=== PATIENT | female | born 1985 | race Caucasian/White ===

== ENCOUNTER 2016-09-18 21:42 | Emergency (ER) | payer OTHER ==
[~2016-09-18] VITALS: Ht 162.6 cm; Wt 61.7 kg
[2016-09-18 21:42] VITALS: BP 121/70
[~2016-09-18 21:42] MED LIST: CEPH-264 PO; HYDR-2672 PO; HYDR60TA PO; IBUP400T PO; ONDA4TAB10 SL; PANT40TA3 PO; TIZA4TAB PO; depo shot
--- NOTE | 2016-09-18 21:50 | ED.ADGEN ---
Past History Past Medical History: No Pertinent History Past Surgical History: No Surgical History Smoking: Cigarettes, Less than 1pk/day Alcohol Use: None Drug Use: None Adult General Chief Complaint Chief Complaint " .. I poked this pimple on the Rt side of my head.. and now it gotten worse the last two days.. more infected.. it needs to be drained..." HPI HPI Patient is a 31 year old female who presents with above hx and complaints pimple on right church area that she pleased and tried to drain 2 days ago. Now has developed an area about 4 x 6 cm of erythema and swelling and pain. Does not appear to involve the para orbital area on the right. Does have some adenopathy at angle of ear. Patient does not remember her last tetanus. Patient does not give a history of previous MRSA. Patient has no history immunosuppression. No history of travel. No history of specific ill contacts. Patient is normally healthy. Pt insistent she has an abscess at area of pimple she attempted to drain. Review of Systems Review of Systems Constitutional: Denies fever or chills [] Eyes: Denies change in visual acuity, redness, or eye pain [] HENT: Denies nasal congestion or sore throat [] Respiratory: Denies cough or shortness of breath [] Cardiovascular: No additional information not addressed in HPI [] GI: Denies abdominal pain, nausea, vomiting, bloody stools or diarrhea [] : Denies dysuria or hematuria [] Musculoskeletal: Denies back pain or joint pain [] Integument: Complaints are right church area cellulitis Neurologic: Denies headache, focal weakness or sensory changes [] Endocrine: Denies polyuria or polydipsia [] Family History Family History Noncontributory Current Medications Current Medications Current Medications Medications (Trade) Dose Ordered Sig/Chloe Start Time Stop Time Status Last Admin Dose Admin Ceftriaxone Sodium (Rocephin Im) 1 gm 1X ONCE 09/18/16 23:00 09/18/16 23:01 DC 09/18/16 22:59 1 GM Diphtheria/ Tetanus/Acell Pertussis (Boostrix) 0.5 ml ONCE ONCE 09/18/16 23:00 09/18/16 23:01 DC 09/18/16 23:02 0.5 ML Lidocaine HCl 20 ml STK-MED ONCE 09/18/16 22:55 09/18/16 22:56 DC Trimethoprim/ Sulfamethoxazole (Bactrim Ds) 1 tab 1X ONCE 09/18/16 23:00 09/18/16 23:01 DC 09/18/16 22:59 1 TAB Allergies Allergies Allergies Coded Allergies Type Severity Reaction Last Updated Verified No Known Drug Allergies 03/24/15 No Physical Exam Physical Exam Constitutional: Well developed, well nourished, mild distress, non-toxic appearance. [] HENT: Normocephalic, cellulitis as per history of present illness right temporal area, bilateral external ears normal, oropharynx moist, no oral exudates, nose normal. [] Eyes: PERRLA, EOMI, conjunctiva normal, no discharge. [] Neck: Normal range of motion, no tenderness, supple, no stridor. [] Cardiovascular:Heart rate regular rhythm, no murmur [] Lungs & Thorax: Bilateral breath sounds equal with scattered wheezes on auscultation [] Abdomen: Bowel sounds normal, soft, no tenderness, no masses, no pulsatile masses. [] Skin: Warm, dry, no erythema, no rash. Except noted cellulitis right temporal area. Back: No tenderness, no CVA tenderness. [] Extremities: No tenderness, no cyanosis, no clubbing, ROM intact, no edema. [] Neurologic: Alert and oriented X 3, normal motor function, normal sensory function, no focal deficits noted. [] Psychologic: Affect anxious, judgement normal, mood normal. [] EKG EKG [] Radiology/Procedures Radiology/Procedures [] Course & Med Decision Making Course & Med Decision Making Pertinent Labs and Imaging studies reviewed. (See chart for details) Procedure note: Incision and drainage- Central point of cellulitis- Area prepped with Betadine. An incision with 11 blade with minimal drainage of pus. Dressing applied. Patient apply Polysporin 4 times a day. Patient take Bactrim DS twice a day for 10 days. Patient must follow-up primary care. Patient advised to infection may need hospital admission and IV antibiotics. Patient return of any concerns. Patient take Tylenol ibuprofen pain. For marked pain she may take Vicoprofen up to 4 times a day. She is to use warm salt water compresses 4 times a day Pt. encouraged to stop smoking. [] Final Impression Final Impression 1. Cellulitis [] 2. Tobacco Use Problems: Dragon Disclaimer Dragon Disclaimer This electronic medical record was generated, in whole or in part, using a voice recognition dictation system. BRYON CABRERA MD Sep 18, 2016 21:50
--- NOTE | 2016-09-18 22:03 | ACF ---
Admission Criteria Forms CELLULITIS Clinical Indications for Admission to Inpatient Care (Place 'X' for any and all applicable criteria): Admission is indicated for ANY ONE of the following(1)(2)(3)(4)(5): [ ]I. Limb-threatening infection [ ]II. High-risk comorbid condition as indicated by ANY ONE of the following: [ ]a) Uncontrolled diabetes (eg, HbA1c greater than 10% (0.1)) [ ]b) Cirrhosis [ ]c) Neutropenia [ ]d) Asplenia [ ]e) Immunosuppression [ ]f) Symptomatic heart failure [ ]III. Failure of outpatient therapy as indicated by ALL of the following: [ ]a) Progression or no improvement after adequate trial (minimum of 48 hours, with longer period for stable lower extremity infection) [ ]b) Adequate antibiotic regimen as indicated by use of ANY ONE of the following: [ ]i) First-generation cephalosporin (e.g., cephalexin) [ ]ii) Antistaphylococcal penicillin (e.g., dicloxacillin) [ ]iii) Penicillin-allergic patient regimen (clindamycin, extended-spectrum fluoroquinolone, or doxycycline) [ ]iv) Resistant organism (eg, methicillin-resistant Staphylococcus aureus) regimen (6) [ ]c) Outpatient intravenous therapy regimen is not appropriate due to ANY ONE of the following. (7)(8)(9)(10): [ ]i) It was tried and was not successful (eg, progression of infection). [ ]ii) It is not available or cannot be arranged in a clinically appropriate time frame (e.g., the next day). [ ]iii) Clinical presentation (eg, acuity of infection, rapidity of progression, confirmed or suspected bacteremia) is judged to require ALL of the following: [ ]1) Immediate initiation of intravenous therapy ( eg, cannot wait for next day) [ ]2) Intensity of patient monitoring and observation (eg, vital sign measurement, checks for infection progression) that cannot be provided at other than inpatient level of care [ ]IV. Mental status changes [ ]V. Bacteremia [ ]. Hemodynamic instability [ ]VII. Suspected necrotizing soft tissue infection (e.g., gas in tissue)(11)( 12) [ ]VIII. Orbital infection (13)(14) [ ]IX. Associated surgical procedure (e.g., abscess drainage, debridement) not amenable to outpatient, emergency department, or observation care [ ]X. Cutaneous gangrene [ ]XI. High fever (temperature greater than 39.5 degrees C (103.1 degrees F) (oral)) not responsive to outpatient, emergency department, or observation care therapy [ ]XIII. Inpatient admission required rather than observation care (Also use Cellulitis: Observation Care as appropriate) because of ANY ONE of the following : [ ]a) Periorbital or perineal infection that is severe or worsening [ ]b) Severe pain requiring acute inpatient management [ ]c) IV fluid to replace significant ongoing (e.g., for over 24 hours) losses (greater than 3L/m2 per day) [ ]d) Compartment syndrome monitoring (17) [ ]e) Strict or protective (eg, laminar flow) isolation [ ]f) Urgent debridement or skin grafting [ ]g) Bone or joint debridement [ ]h) Immediate inpatient surgery [ ]i) Other condition, treatment or monitoring requiring inpatient admission Extended stay beyond goal length of stay may be needed for (1)(18): [ ]a) Necrotizing soft tissue infection or fasciitis [ ]b) Gram-negative infection [ ]c) Methicillin-resistant Staphylococcal aureus (MRSA) infection [ ]d) Peripheral venous insufficiency with cellulitis [ ]e) Extensive edema [ ]f) Sepsis or continued Hemodynamic instability [ ]g) Continued high fever or mental status change [ ]h) Bacteremia [ ]i) Active serious comorbid conditions ( eg, heart failure, renal insufficiency) The original [employer] content created by [employer] has been revised. The portions of the content which have been revised are identified through the use of italic text or in bold, and [facility] has neither reviewed nor approved the modified material. All other unmodified content is copyright [facility] Please see references footnoted in the original [facility] edition 2016 SMILEY W[place] Sep 18, 2016 22:03
[2016-09-18] MEDS ORDERED: HYDR-79 PO (22:46)
[2016-09-18] MEDS ORDERED: SULF1TAB24 PO (22:46)
[2016-09-18] MEDS ORDERED: LIDOCAINE 1% Multi-Dose 20 ML VIAL. ONE (22:55)
[2016-09-18] MEDS ORDERED: CEFTRIAXONE IM 1 GM VIAL. IM ONE (23:00)
[2016-09-18] MEDS ORDERED: SMZ/TMP 800/160MG TABLET. PO ONE (23:00)
[2016-09-18] MEDS ORDERED: DIPHTH,PERTUSS(ACELL),TET TOX 0.5 ML DISP.SYRIN. VAX IM ONE (23:00)
== END 2016-09-18 23:15 | disposition home or self-care (01) ==
LOC: ER 21:42
DX: L03.811 Cellulitis of head [any part, except face] (principal); F17.210 Nicotine dependence, cigarettes, uncomplicated
CPT/HCPCS: 10060; 90471; 90715; 96372; 99284; J0696

== ENCOUNTER 2020-01-21 16:03 | Emergency (ER) | payer OTHER ==
[~2020-01-21] VITALS: Ht 162.6 cm; Wt 61.0 kg
[~2020-01-21 16:03] MED LIST changes: +HYDR-1179 PO; -HYDR-2672 PO; +HYDR-2769 PO; -IBUP400T PO; +IBUP400T18 PO; +SULF1TAB24 PO; -TIZA4TAB PO; +TIZA4TAB2 PO
[2020-01-21 16:19] VITALS: BP 104/61
--- NOTE | 2020-01-21 16:42 | RAD ---
Three-view right elbow study Clinical indications: Speaker fell on right elbow. Right elbow pain. FINDINGS: No joint effusion is seen. No acute fracture or dislocation or lytic process is seen. No significant arthritic change is evident. IMPRESSION: No acute osseous abnormality. Electronically signed by: Peter Alvarado MD (01/21/2020 4:39 PM) [id number]
--- NOTE | 2020-01-21 16:47 | PHYS DOC ---
Past History Past Medical History: No Pertinent History Past Surgical History: No Surgical History Smoking: Cigarettes, Less than 1pk/day Alcohol Use: None Drug Use: None Adult General Chief Complaint Chief Complaint: UPPER EXTREMITY INJURY [facility] HPI Patient is a 34-year-old female who presents for right elbow pain. Onset was 2 days ago when she reportedly dropped a speaker from head height onto her right elbow. Patient reports generalized aches, pains, and "tingling "in right upper extremity". Patient reportedly took narcotic pain medication from her friend today that made it better, movement and "everything "makes worse. Pain described as dull, radiates from elbow to both hand and right shoulder, and during movement or palpation 10/10 in severity. Timing of symptoms has been constant since onset. Review of Systems Review of Systems Fourteen body systems of review of systems have been reviewed. See HPI for pertinent positives and negative responses, other burks all other systems are negative, non-pertinent or non-contributory Allergies Allergies Allergies Coded Allergies Type Severity Reaction Last Updated Verified No Known Drug Allergies 03/24/15 No Physical Exam Physical Exam Constitutional: Well developed, well nourished, no acute distress, non-toxic appearance. HENT: Normocephalic, atraumatic, bilateral external ears normal, oropharynx moist, no oral exudates, nose normal. Eyes: PERRLA, EOMI, conjunctiva normal, no discharge. Neck: Normal range of motion, no tenderness, supple, no stridor. Cardiovascular: Heart rate regular, sinus rhythm, no murmurs rubs or gallops Lungs & Thorax: Bilateral breath sounds clear to auscultation Abdomen: Bowel sounds normal, soft, no tenderness, no masses, no pulsatile masses. Nonsurgical abdomen, no peritoneal signs Skin: Warm, dry, no erythema, no rash. Back: No tenderness, no CVA tenderness. Extremities: No cyanosis, no clubbing, ROM intact, no edema. Shoulder, bilateral unless otherwise noted Appearance of Glenohumeral joint normal Nontender Clavicle and Humerus Sensation over deltoid in tact Neurovascular exam distally in tact per routine Compartments surrounding are soft Elbow, bilateral unless otherwise noted Distal humerus nontender Olecranon nontender Medial and Lateral epicondyles nontender, lateral epicondyles tender on right upper extremity Full Range of Motion with full strength, decreased range of motion of right upper extremity due to pain, strength 4/5 Neurovascular exam distally in tact per routine Compartments surrounding are soft Fingers: normal inspection, non tender, normal color, normal tendon function including FDS and FDP functions Hand: normal inspection, non tender, normal color, tendon function intact Wrist: normal inspection, non tender, normal color, no joint swelling Neurologic: Alert and oriented X 3, grossly normal motor & sensory function, no focal deficits noted. Psychologic: Affect normal, judgement normal, mood normal. Current Patient Data Vital Signs Vital Signs Date Time Temp Pulse Resp B/P (MAP) Pulse Ox O2 Delivery O2 Flow Rate FiO2 01/21/20 16:19 98.0 95 16 104/61 (75) 99 Room Air EKG EKG [] Radiology/Procedures Radiology/Procedures PROCEDURE: ELBOW RIGHT 3V Three-view right elbow study Clinical indications: Speaker fell on right elbow. Right elbow pain. FINDINGS: No joint effusion is seen. No acute fracture or dislocation or lytic process is seen. No significant arthritic change is evident. IMPRESSION: No acute osseous abnormality. Electronically signed by: Peter Alvarado MD (01/21/2020 4:39 PM) [id number] Course & Med Decision Making Course & Med Decision Making Patient seen on immediate ED arrival by myself, during Vital signs stable, comprehensive history and physical exam obtained with subsequent imaging studies Given comprehensive work-up, no acute indication for further work-up or invasive management in ED setting Likely sprain type injury that is self resolving in nature of right upper extremity Discussed importance of supportive care, rice, NSAIDs/Tylenol for pain control and consideration for physical therapy in outpatient setting Patient does not have a PCP, gave her resources on who to establish with in the local area for this Patient demonstrated pain seeking behavior throughout visit. She is currently on benzodiazepines, kept referring to pain medication her friend gave her yesterday evening and also today that helped with pain, was asking for prescription for this, I declined Patient sent home with instructions as stated above for supportive care and prescription for meloxicam Strict return precautions discussed with good understanding by patient, all questions and concerns addressed prior to ER departure Lizette Disclaimer Lizette Disclaimer This electronic medical record was generated, in whole or in part, using a voice recognition dictation system. Departure Departure: Impression: Primary Impression: Elbow pain, right Additional Impression: Drug-seeking behavior Disposition: HOME/RESIDENCE PRIOR TO ADM Condition: STABLE Referrals: PCP,NO (PCP) Patient Instructions: Musculoskeletal Pain, RICE - Routine Care for Injuries Additional Instructions: As discussed prior to ER discharge, please follow-up with local primary care physician of your choosing I have sent you home with resources of local primary care physicians in the area who are accepting new patients, please call these and set up a follow-up appointment in the next 3 to 7 days at your discretion Please continue supportive care for your right elbow, I recommend following up with your primary care regarding this and potential need for physical therapy in the future Scripts Meloxicam (MOBIC) 15 Mg Tablet 1 TAB PO DAILY for PAIN, #14 TAB 1 Refill Prov: TORY PENALOZA DO 01/21/20 Justification of Admission: Justification of Admission: Justification of Admission Dx: N/A Problem Qualifiers TORY PENALOZA DO Jan 21, 2020 16:47
[2020-01-21] MEDS ORDERED: MELO15TA6 PO (17:14)
== END 2020-01-21 18:02 | disposition home or self-care (01) ==
LOC: ER 16:03
DX: M25.521 Pain in right elbow (principal); F17.210 Nicotine dependence, cigarettes, uncomplicated; Z76.5 Malingerer [conscious simulation]; W20.8XXA Other cause of strike by thrown, projected or falling object, initial encounter; Y93.89 Activity, other specified; Y92.89 Other specified places as the place of occurrence of the external cause; Y99.8 Other external cause status
CPT/HCPCS: 73080; 99283